=== PATIENT | female | born 1955 | race Caucasian/White ===

== ENCOUNTER 2017-07-11 12:15 | Inpatient (IN) | payer MEDICARE ==
[~2017-07-11] VITALS: Ht 165.1 cm; Wt 53.5 kg
--- NOTE | 2017-07-11 12:30 | NUR ---
GPS/RN RECIEVED PT FROM [facility] ON 5150 FOR DANGER TO OTHERS ALERT NO ACUTE DISTRESS NOTED POOR HISTORIAN, PICTURES TAKEN. ADMITTING ORDERS FROM DR LANDEROS RECEIVED AND CARRIED OUT. ON FACE TO FACE ASSESSMENT NO SI OR HI A THE TIME OF ADMISSION. FAMILY ()NOTIFIED OF ADMISSION.
[2017-07-11 12:41] VITALS: BP 136/85
[2017-07-11] MEDS ORDERED: MAGNESIUM HYDROXIDE 30 ML UDC PO PRN (13:00)
[2017-07-11] MEDS ORDERED: MAG HYDROX/AL HYDROX/SIMETH 30 ML UDC PO PRN ×2 (13:00→15:30)
[2017-07-11] MEDS ORDERED: PANT40TA2 PO (13:04)
[2017-07-11] MEDS ORDERED: METO25TA20 PO (13:04)
[2017-07-11] MEDS ORDERED: ACET325T53 PO (13:04)
[2017-07-11] MEDS ORDERED: BENZ1TAB7 PO (13:04)
[2017-07-11] MEDS ORDERED: MAGN400O4 PO (13:04)
[2017-07-11] MEDS ORDERED: NICO1PAT11 TD (13:04)
[2017-07-11] MEDS ORDERED: BUDE10.22 INH (13:04)
[2017-07-11] MEDS ORDERED: OLAN5TAB6 PO (13:04)
[2017-07-11] MEDS ORDERED: IBUP-1481 PO (13:04)
[2017-07-11] MEDS ORDERED: TRAZ-147 PO (13:04)
[2017-07-11] MEDS ORDERED: SULF1TAB48 PO (13:04)
[2017-07-11] MEDS ORDERED: MAG30ORA PO (13:04)
[2017-07-11] MEDS ORDERED: LORA1TAB82 PO (13:04)
[2017-07-11] MEDS ORDERED: ACET-73 PO (13:04)
[2017-07-11] MEDS ORDERED: ARIP30TA PO (13:04)
--- NOTE | 2017-07-11 15:02 | NUR ---
CALLED DR. CARRERA AND NOTIFIED ABOUT THE ADMISSION AND HE WILL RECONCILE MEDS AND ORDERED U/A AND URINE CULTURE.
[2017-07-11] MEDS ORDERED: MAGNESIUM HYDROXIDE 30 ML UDC PO SCH (15:30)
[2017-07-11] MEDS ORDERED: ACETAMINOPHEN 325 MG TABLET PO PRN (15:30)
[2017-07-11 16:00] VITALS: BP 108/84
[2017-07-11] MEDS: METOPROLOL TARTRATE 25 MG TABLET PO SCH (16:23)
[2017-07-11] MEDS ORDERED: FORMOTEROL FUMARATE INH SCH (17:00)
[2017-07-11] MEDS ORDERED: BUDESONIDE INH SCH (17:00)
[2017-07-11 20:00] VITALS: BP 122/82
[2017-07-11] MEDS: IBUPROFEN 400 MG TABLET PO PRN (20:29)
[2017-07-11] MEDS: clonazePAM 0.5 MG TABLET PO PRN (20:29)
[2017-07-11] MEDS ORDERED: OLANZAPINE 5 MG/TAB.RAPDIS PO SCH (22:00)
[2017-07-11] MEDS ORDERED: OLANZAPINE 10 MG TABLET PO SCH (22:00)
[2017-07-11] MEDS ORDERED: OLANZAPINE 5 MG TABLET ONE (22:00)
[2017-07-11] MEDS ORDERED: TRAZODONE 50 MG TABLET ONE (22:00)
[2017-07-11] MEDS: TRAZODONE 50 MG TABLET PO SCH (22:09)
--- NOTE | 2017-07-12 06:32 | NUR ---
pt refused blood draw. explained the benefits of lab work. pt still refused.
[2017-07-12 08:00] VITALS: BP 125/90
[2017-07-12] MEDS: METOPROLOL TARTRATE 25 MG TABLET PO SCH ×2 (08:59→16:31)
[2017-07-12] MEDS: PANTOPRAZOLE 40 MG TABLET.DR PO SCH (08:59)
[2017-07-12] MEDS: NICOTINE PATCH (21MG) 21 MG PATCH.TD24 TD SCH (08:59)
[2017-07-12 16:12] VITALS: BP 143/80
[2017-07-12] MEDS: OLANZAPINE 5 MG/TAB.RAPDIS PO SCH (16:31)
[2017-07-12 20:11] VITALS: BP 140/77
[2017-07-12] MEDS: TRAZODONE 50 MG TABLET PO SCH (21:37)
--- NOTE | 2017-07-13 00:44 | NUR ---
Pt has been quite fragmented, very disorganized, hyperverbal at times, difficult to redirect, requiring frequent redirections, intrusive, & unpredictable. She has not been med compliant on this shift.
[2017-07-13 08:00] VITALS: BP 137/86
[2017-07-13] MEDS: METOPROLOL TARTRATE 25 MG TABLET PO SCH ×2 (09:36→16:14)
[2017-07-13] MEDS: PANTOPRAZOLE 40 MG TABLET.DR PO SCH (09:36)
[2017-07-13] MEDS: OLANZAPINE 5 MG/TAB.RAPDIS PO SCH ×2 (09:36→16:14)
[2017-07-13] MEDS: NICOTINE PATCH (21MG) 21 MG PATCH.TD24 TD SCH (10:46)
[2017-07-13 16:00] VITALS: BP 136/80
[2017-07-13 21:00] VITALS: BP 128/83
[2017-07-13] MEDS: TRAZODONE 50 MG TABLET PO SCH (21:31)
--- NOTE | 2017-07-13 22:27 | NUR ---
GPS RN NOTES: PATIENT SITTING IN THE DINING ROOM, VERBALLY AGGRESSIVE AT STAFF, PATIENT CONTINUALLY HITTING AT STAFF. OFFERED KLONOPIN 0.5 MG BUT PATIENT JUST THREW IT RIGHT INTO THE NURSE. CALLED DR. LANDEROS FOR AN ORDER OF IM SHOT AT 5470. AWAITING FOR CALL BACK.
--- NOTE | 2017-07-14 02:15 | NUR ---
GPS RN NOTE: PATIENT NOTED FOR SCRATCHING HERSELF. WHILE ASSISTING THE PRIMARY NURSE IN THE TREATMENT AND TAKING PICTURE. PATIENT WAS QUIET AND SUDDENLY KICKED THE NURSE ON HIS FACE. REDIRECT THE PATIENT AND NOTIFIED CHARGE NURSE.
[2017-07-14] MEDS ORDERED: OLANZAPINE 10 MG VIAL IM STA (02:25)
--- NOTE | 2017-07-14 02:25 | NUR ---
GPS RN: IT WAS REPORTED BY THE DIRECTOR SECURITY RISK MANAGEMENT THAT PATIENT HAD A SELF INFLICTED SCRATCH ON BOTH LOWER LEGS. CLEANSED THE SIGHT AND TOOK PICTURES. PATIENT NOTED TO BE TALKING NON SENSICAL STUFF, DELUSIONAL AND WITH FLIGHT OF IDEAS, WITH GESTURES OF TRYING TO GRAB THE STAFF WHENEVER THEY COME NEAR HER. TELEVISION REPORTER, CHECKED THE SITE OF ABRASION. DR. MELCHOR CALLED FOR AN ORDER OF IM SHOT. VITAL SIGNS TAKEN BP 134/97 HEART RATE 104, SHE GAVE ORDERS FOR ZYPREXA 5MG IM ONCE-GIVEN ORDERED. PICTURES ARE THEN PLACED IN THE CHART. WOUND CONSULT TRIGGERED. WILL CONTINUE TO MONITOR PATIENT FOR MOOD, SAFETY AND BEHAVIOR.
[2017-07-14] MEDS ORDERED: OLANZAPINE 10 MG VIAL IM ONE ×2 (02:34→18:00)
--- NOTE | 2017-07-14 07:00 | NUR ---
GPS RN: FIELD REPRESENTATIVE/HEALTH EDUCATION CALLED AND SPOKE WITH PATRICE HARMAN- SPOUSE AND INFORMED REGARDING THE IM SHOT GIVEN TO THE PATIENT. PER PATRICE, THE PATIENT HAS BEEN OFF PSYCH MEDICATION BY THEIR OWN PSYCH DR, AND THAT SHE IS TAKING PAXIL MEDICATION OF UNKNOWN DOSE AND TRAZODONE 300 MG FOR SLEEP. WILL ENDORSE TO DAY SHIFT NURSE, WILL CONTINUE TO MONITOR PATIENT FOR MOOD,SAFETY AND BEHAVIOR.
[2017-07-14] MEDS: OLANZAPINE 5 MG/TAB.RAPDIS PO SCH ×4 (09:00→17:00)
[2017-07-14] MEDS: NICOTINE PATCH (21MG) 21 MG PATCH.TD24 TD SCH ×2 (09:00→09:41)
[2017-07-14] MEDS: METOPROLOL TARTRATE 25 MG TABLET PO SCH ×3 (09:00→17:00)
[2017-07-14] MEDS: PANTOPRAZOLE 40 MG TABLET.DR PO SCH (09:42)
[2017-07-14 12:09] LABS: BASOPHILS % (AUTO) 0.2 % (0.0-2.0); EOSINOPHILS % (AUTO) 0.1 % (0.0-6.0); HEMATOCRIT 43 % (33-45); HEMOGLOBIN 14.7 g/dL (11.5-14.8); LYMPHOCYTES # (AUTO) 1.8 /CMM (0.8-4.8); LYMPHOCYTES % (AUTO) 13.8 % (20.0-44.0); MEAN CORPUSCULAR HEMOGLOBIN 29 PG (26.0-33.0); MEAN CORPUSCULAR HGB CONC 34 g/dl (31.0-36.0); MEAN CORPUSCULAR VOLUME 86 fL (82-100); MONOCYTES % (AUTO) 7.5 % (2.0-12.0); NEUTROPHILS # (AUTO) 10.2 /CMM (1.8-8.9); NEUTROPHILS % (AUTO) 78.4 % (43.0-81.0); PLATELET COUNT (AUTO) 360 /CMM (150-450); RDW COEFFICIENT OF VARIATION 14.2 (11.5-15.0); RED BLOOD CELL COUNT(AUTO) 5.01 MIL/uL (4.0-5.2); WHITE BLOOD COUNT (AUTO) 13.1 K/uL (4.3-11.0)
[2017-07-14 12:20] LABS: CALCIUM, SERUM 9.5 mg/dL (8.5-10.1); POTASSIUM 4.1 mmol/L (3.5-5.1)
--- NOTE | 2017-07-14 14:57 | NUR ---
Initial discharge plan: Pt. resides at home with at [address] [place] [address] [address] [place] [address] . SW will follow up with pt's , Brian Barba [phone] to discuss discharge plan. SW will help form safe and proper discharge.
[2017-07-14 16:00] VITALS: BP 123/93
[2017-07-14] MEDS: FLUTICASONE/VILANTEROL 1 EACH BLST.W.DEV IH SCH (16:42)
[2017-07-14] MEDS: BOOST PLUS FOOD-CHOCLATE 237 ML BOX PO SCH ×2 (16:47→16:48)
--- NOTE | 2017-07-14 17:48 | NUR ---
GPS RN NOTES/ PATIENT VERY ANXIOUS, DELUSIONAL, PARANOID, HALLUCINATING, HIGH POTENTIAL FOR VIOLENCE, THREATENING HARM SELF, STRIKING OUT,REFUSED TAKE MEDICATION. 1:1 SITTER NEXT TO THE PATIENT FOR SAFETY, PATIENT REFUSED V/S TO BE TAKEN, HIGH POTENTIAL FOR VIOLATION. DR TOVAR PRESCRIBED ZYPREXA 5 MG/ML IM . ORDER TAKEN AND CARRIED OUT.
--- NOTE | 2017-07-14 17:52 | NUR ---
GPS RN NOTES/ ADMINISTERED ZYPREXA 5 MG/ML IM RIGHT OUTER GLUTEAL AREA, PRESCRIBED BY MD. 1;1 SITTER NEXT TO THE BED FOR SAFETY. PATIENT REFUSED V/S TO BE TAKEN. CONTINUED MONITORING.
[2017-07-14 20:23] VITALS: BP 127/81
[2017-07-14] MEDS: TRAZODONE 50 MG TABLET PO SCH (21:25)
[2017-07-15 08:00] VITALS: BP 116/75
[2017-07-15] MEDS: METOPROLOL TARTRATE 25 MG TABLET PO SCH ×3 (09:00→16:54)
[2017-07-15] MEDS: NICOTINE PATCH (21MG) 21 MG PATCH.TD24 TD SCH (09:00)
[2017-07-15] MEDS: PANTOPRAZOLE 40 MG TABLET.DR PO SCH ×2 (09:00→10:11)
[2017-07-15] MEDS: OLANZAPINE 5 MG/TAB.RAPDIS PO SCH ×3 (09:00→16:55)
[2017-07-15] MEDS: FLUTICASONE/VILANTEROL 1 EACH BLST.W.DEV IH SCH (09:13)
[2017-07-15] MEDS: BOOST PLUS FOOD-CHOCLATE 237 ML BOX PO SCH ×2 (09:14→16:56)
--- NOTE | 2017-07-15 16:10 | NUR ---
SW spoke with pt's (who she is from) and he states that pt. lives alone in an apartment, and the number of the apartment is [address] and not [address]. BA was asked to call the apartment building and to notify them that the patient is in the hospital so they don't evict her. BA called the building [phone] and spoke with a personnel technician and provided her all the information.
[2017-07-15 16:19] VITALS: BP 119/78
--- NOTE | 2017-07-15 18:00 | NUR ---
GPS RN NOTES/ PATIENT A/O X1/2, DELUSIONAL, DISORGANIZED THOUGHTS, UNPREDICTABLE, REFUSED TAKE MEDICATION, AND POOR EATER. DR LANDEROS, AND MK RAMIRES AWARE OF. 1:1 SITTER NEXT TO THE BED FOR SAFETY. ENDORSED ONCOMING NURSE FOR CONTINUATION OF CARE.
[2017-07-15 20:00] VITALS: BP 137/71
[2017-07-15 20:40] VITALS: BP 137/71
[2017-07-15] MEDS: TRAZODONE 50 MG TABLET PO SCH (21:23)
[2017-07-16 08:00] VITALS: BP 146/87
[2017-07-16] MEDS: BOOST PLUS FOOD-CHOCLATE 237 ML BOX PO SCH ×2 (09:02→16:59)
[2017-07-16] MEDS: NICOTINE PATCH (21MG) 21 MG PATCH.TD24 TD SCH (09:03)
[2017-07-16] MEDS: PANTOPRAZOLE 40 MG TABLET.DR PO SCH (09:03)
[2017-07-16] MEDS: OLANZAPINE 5 MG/TAB.RAPDIS PO SCH ×2 (09:03→16:59)
[2017-07-16] MEDS: FLUTICASONE/VILANTEROL 1 EACH BLST.W.DEV IH SCH (09:03)
[2017-07-16] MEDS: METOPROLOL TARTRATE 25 MG TABLET PO SCH ×2 (09:03→16:59)
--- NOTE | 2017-07-16 10:19 | NUR ---
WOUND CARE CONSULT: PT PRESENTS WITH MULTIPLE BRUISES AND DRY SCRATCHES, PRESENT ON ADMISSION. PT IS CONTINENT. ALL SKIN PROTECTION MEASURES IN PLACE AND DISCUSSED WITH NURSING STAFF. WILL SEE PRN. Addendum: 07/16/17 at 1020 by STACEY SCHWARTZ WNDNU Amended: Links added.
--- NOTE | 2017-07-16 10:30 | NUR ---
Pt. able to reposition by herself.
--- NOTE | 2017-07-16 12:58 | NUR ---
Pt. able to reposition by herself
--- NOTE | 2017-07-16 15:31 | NUR ---
Pt. able to reposition by herself
[2017-07-16 16:00] VITALS: BP 133/74
[2017-07-16 20:00] VITALS: BP 124/81
[2017-07-16] MEDS: TRAZODONE 50 MG TABLET PO SCH (21:21)
[2017-07-17] MEDS: clonazePAM 0.5 MG TABLET PO PRN (03:38)
[2017-07-17 08:00] VITALS: BP 106/64
[2017-07-17] MEDS: METOPROLOL TARTRATE 25 MG TABLET PO SCH ×2 (09:00→16:59)
[2017-07-17] MEDS: OLANZAPINE 5 MG/TAB.RAPDIS PO SCH ×2 (09:05→21:38)
[2017-07-17] MEDS: PANTOPRAZOLE 40 MG TABLET.DR PO SCH (09:05)
[2017-07-17] MEDS: NICOTINE PATCH (21MG) 21 MG PATCH.TD24 TD SCH (09:05)
[2017-07-17] MEDS: BOOST PLUS FOOD-CHOCLATE 237 ML BOX PO SCH ×2 (09:07→17:00)
[2017-07-17] MEDS: FLUTICASONE/VILANTEROL 1 EACH BLST.W.DEV IH SCH (09:10)
[2017-07-17 16:01] VITALS: BP 123/93
--- NOTE | 2017-07-17 19:31 | NUR ---
FOUNTAIN SERVER-NOTES NO URINE COLLECTED THIS SHIFT. ENDORSE TO INCOMING NURSE FOR CONTINUITY OF CARE.
[2017-07-17 20:00] VITALS: BP 126/96
[2017-07-17] MEDS: TRAZODONE 50 MG TABLET PO SCH (21:38)
[2017-07-17] MEDS: TEMAZEPAM 7.5 MG CAPSULE PO PRN (23:16)
[2017-07-18] MEDS: clonazePAM 0.5 MG TABLET PO PRN (03:05)
--- NOTE | 2017-07-18 03:12 | NUR ---
RN GPS NOTES PT. C/O ANXIETY ,KLONOPIN 0.5 MG PO PRN GIVEN , WILL CONTINUE TO MONITOR .
--- NOTE | 2017-07-18 07:08 | NUR ---
RN GPS NOTES PATIENT RESTING HER BED, NO ACUTE DISTRESS NOTED ,NO CHANGES IN STATUS. ALL NEEDS ATTENDED ANTICIPATED . DENIES SI/HI AT THIS TIME, PT. COMPLY WITH DUE MEDS ,WILL ENDORSE TO NEXT SHIFT FOR CONTINUITY CARE
[2017-07-18 08:00] VITALS: BP 95/65
[2017-07-18] MEDS: METOPROLOL TARTRATE 25 MG TABLET PO SCH ×2 (08:43→17:00)
[2017-07-18] MEDS: PANTOPRAZOLE 40 MG TABLET.DR PO SCH (08:43)
[2017-07-18] MEDS: FLUTICASONE/VILANTEROL 1 EACH BLST.W.DEV IH SCH (08:44)
[2017-07-18] MEDS: NICOTINE PATCH (21MG) 21 MG PATCH.TD24 TD SCH (08:44)
[2017-07-18] MEDS: OLANZAPINE 5 MG/TAB.RAPDIS PO SCH ×2 (08:44→21:47)
[2017-07-18] MEDS: BOOST PLUS FOOD-CHOCLATE 237 ML BOX PO SCH ×2 (08:46→18:59)
[2017-07-18 16:00] VITALS: BP 127/84
[2017-07-18 20:00] VITALS: BP 106/70
[2017-07-18] MEDS: TRAZODONE 50 MG TABLET PO SCH (21:46)
[2017-07-18] MEDS: TEMAZEPAM 7.5 MG CAPSULE PO PRN (22:35)
[2017-07-19] MEDS: clonazePAM 0.5 MG TABLET PO PRN (04:37)
--- NOTE | 2017-07-19 04:40 | NUR ---
RN GPS NOTES PT. C/O ANXIETY ,KLONOPIN 0.5 MG PO PRN GIVEN , WILL CONTINUE TO MONITOR .
[2017-07-19 08:00] VITALS: BP 121/78
[2017-07-19] MEDS: NICOTINE PATCH (21MG) 21 MG PATCH.TD24 TD SCH (09:26)
[2017-07-19] MEDS: OLANZAPINE 5 MG/TAB.RAPDIS PO SCH ×2 (09:27→21:40)
[2017-07-19] MEDS: PANTOPRAZOLE 40 MG TABLET.DR PO SCH (09:27)
[2017-07-19] MEDS: METOPROLOL TARTRATE 25 MG TABLET PO SCH ×2 (09:27→16:49)
[2017-07-19] MEDS: BOOST PLUS FOOD-CHOCLATE 237 ML BOX PO SCH ×2 (09:28→16:22)
[2017-07-19] MEDS: FLUTICASONE/VILANTEROL 1 EACH BLST.W.DEV IH SCH (09:28)
[2017-07-19 16:06] VITALS: BP 126/80
[2017-07-19 19:59] VITALS: BP 122/75
[2017-07-19] MEDS: TRAZODONE 50 MG TABLET PO SCH (21:39)
[2017-07-19] MEDS: TEMAZEPAM 7.5 MG CAPSULE PO PRN (22:17)
[2017-07-20] MEDS: PANTOPRAZOLE 40 MG TABLET.DR PO SCH (07:59)
[2017-07-20] MEDS: METOPROLOL TARTRATE 25 MG TABLET PO SCH ×2 (07:59→17:25)
[2017-07-20] MEDS: OLANZAPINE 5 MG/TAB.RAPDIS PO SCH (07:59)
[2017-07-20 08:00] VITALS: BP 121/80
[2017-07-20] MEDS: BOOST PLUS FOOD-CHOCLATE 237 ML BOX PO SCH ×2 (08:00→17:32)
[2017-07-20] MEDS: FLUTICASONE/VILANTEROL 1 EACH BLST.W.DEV IH SCH (08:02)
[2017-07-20 08:28] VITALS: BP 121/80
[2017-07-20] MEDS: ACETAMINOPHEN 325 MG TABLET PO PRN ×2 (08:43→17:58)
[2017-07-20] MEDS: NICOTINE PATCH (21MG) 21 MG PATCH.TD24 TD SCH (08:47)
--- NOTE | 2017-07-20 08:50 | NUR ---
GPS/RN PATIENT REPORTS 8/10 GENERALIZED PAIN REQUESTED TYLENOL, ADMINISTERED TYLENOL PO ORDERED, WILL CONTINUE TO MONITOR.
[2017-07-20] MEDS: clonazePAM 0.5 MG TABLET PO PRN ×2 (10:13→21:14)
--- NOTE | 2017-07-20 10:13 | NUR ---
RN GPS NOTES PATIENT ANXIOUS, RESTLESS, REQUESTED KLONOPIN PO, ADMINISTERED KLONOPIN PO 0.5 MG ORDERED, WILL CONTINUE TO MONITOR. WILL CONTINUE TO MONITOR . Addendum: 07/20/17 at 1021 by THOMAS PAPPAS RN PATIENT CHANGED HER MIND ABOUT TAKING THE MEDICATION, WILL CONTINUE TO MONITOR.
[2017-07-20] MEDS: IBUPROFEN 400 MG TABLET PO PRN (13:53)
--- NOTE | 2017-07-20 13:55 | NUR ---
GPS/RN PATIENT REPORTS 710 GENERALIZED PAIN REQUESTED MOTRIN, ADMINISTERED MOTRIN PO ORDERED, WILL CONTINUE TO MONITOR.
[2017-07-20 16:00] VITALS: BP 130/88
--- NOTE | 2017-07-20 17:59 | NUR ---
GPS/RN PATIENT REPORTS 7/10 GENERALIZED PAIN REQUESTED TYLENOL, ADMINISTERED TYLENOL PO ORDERED, WILL CONTINUE TO MONITOR.
--- NOTE | 2017-07-20 19:30 | NUR ---
GPSRN PATIENT SLEEPING AT THIS TIME. TO CONTINUE.
[2017-07-20 20:14] VITALS: BP 106/61
[2017-07-20] MEDS: TRAZODONE 50 MG TABLET PO SCH (20:35)
--- NOTE | 2017-07-20 20:35 | NUR ---
GPSRN AWAKENED, INSISTED TO HAVE HER TRAZADONE TO BE GIVEN EARLY. STATED SHE DOES NOT WANT TO BE DISTURB AFTER TAKING HER MEDICATION. ADMISTERED EARLY PER REQUEST. TO CONTINUE.
--- NOTE | 2017-07-20 21:00 | NUR ---
GPSRN GETTING AGITATED, WENT OUT OF HER ROOM AND PREFERRED TO SEAT OUTSIDE ROOM. APPEARS UPSET WITH ROOM MATES' BEHAVIOR, STATED "TOO MUCH " FOR HER. WANTED TO HAVE HER KLONOPIN AND WILL CALL LATER. WANTED TO BE LEFT ALONE. CLOSELY WATCHED.
[2017-07-20] MEDS ORDERED: OLANZAPINE 5 MG/TAB.RAPDIS PO SCH (22:00)
--- NOTE | 2017-07-20 22:06 | NUR ---
GPSRN SLEEPING AT THIS TIME FEW MINUTES AFTER KLONOPIN ADMINISTRATION. SITTER AT BEDSIDE.
[2017-07-21] MEDS: IBUPROFEN 400 MG TABLET PO PRN ×2 (03:34→14:56)
--- NOTE | 2017-07-21 03:40 | NUR ---
GPSRN VERBALIZES TOOTH ACHE, MOTRIN 400 MG PO ADMINISTERED REQUESTED. WILL ADDRESS TO MORNING SHIFT NEED FOR DENTIST IF POSSIBLE. MILK AND CRACKERS PROVIDED. REMAINS COOPERATIVE . SLEPT GOOD.
--- NOTE | 2017-07-21 06:54 | NUR ---
GPSRN TOTAL HOURS OF SLEEP, 7HRS.
[2017-07-21 08:00] VITALS: BP 91/67
[2017-07-21] MEDS: PANTOPRAZOLE 40 MG TABLET.DR PO SCH (08:08)
[2017-07-21] MEDS: clonazePAM 0.5 MG TABLET PO PRN (08:08)
--- NOTE | 2017-07-21 08:08 | NUR ---
RN GPS NOTES PATIENT ANXIOUS, RESTLESS, REQUESTED KLONOPIN PO, ADMINISTERED KLONOPIN PO 0.5 MG ORDERED, WILL CONTINUE TO MONITOR. WILL CONTINUE TO MONITOR .
[2017-07-21] MEDS: OLANZAPINE 5 MG/TAB.RAPDIS PO SCH (08:09)
[2017-07-21] MEDS: NICOTINE PATCH (21MG) 21 MG PATCH.TD24 TD SCH (08:09)
[2017-07-21] MEDS: BOOST PLUS FOOD-CHOCLATE 237 ML BOX PO SCH (08:50)
[2017-07-21] MEDS: METOPROLOL TARTRATE 25 MG TABLET PO SCH (09:00)
[2017-07-21] MEDS: FLUTICASONE/VILANTEROL 1 EACH BLST.W.DEV IH SCH (09:04)
--- NOTE | 2017-07-21 13:14 | NUR ---
Pt. expressed not wanting to go home and wanted to be placed in a facility. Pt. was referred and accepted to [facility] [phone] ([phone]) via Ángel and SYLVIA at the facility.
--- NOTE | 2017-07-21 15:10 | NUR ---
Discharge note: discharge to [facility] ([phone]) [address] [place] [address] , Brian Barba [phone] was notified and agreed. Pt. is a smoker and was referred to [facility] [facility] on at 1:00 PM [phone] PIN: [phone] . Pt. agreed with being placed in a facility and was very happy about not returning back home. Discharge paperwork has been signed, discharge instructions have been provided to the accepting facility. Pt. was calm, cooperative, and agreed with the discharge plan. Pt. denied suicidal/homicidal ideations.
[2017-07-21 16:00] VITALS: BP 114/61
--- NOTE | 2017-07-21 16:30 | NUR ---
GPS/RN PATIENT IS A 62 Y/O FEMALE CLEARED FOR DISCHARGE TO [facility] BY DR LANDEROS AND DR CARRERA. ALL D/C PAPER WORK COMPLETED, MEDICATIONS RECONCILED BY BOTH DR'S, D/C PACKET, AFTERCARE AND MEDICATIONS REVIEWED WITH PATIENT, VERBALIZED UNDERSTANDING, BELONGINGS RETURNED AND SIGNED FOR BY PATIENT, PATIENT DENIES SI/HI/AH UPON DISCHARGE, PSYCHIATRIC TREATMENT PLANS MET, REPORT CALLED TO FACILITY, SPOKE WITH RENE, MEDICATIONS FAXED TO FACILITY REQUESTED, PATIENT LEFT UNIT CALM, COOPERATIVE, NO DISTRESS NOTED WITH EMT AT SIDE.
== END 2017-07-21 16:30 | DRG 885 ==
LOC: GPS 12:15
PROVIDERS: ADMIT Psychiatry & Neurology Psychiatry; ATTEND Family Medicine
DX: F20.0 Paranoid schizophrenia (principal); R45.851 Suicidal ideations; F29 Unspecified psychosis not due to a substance or known physiological condition; Z73.6 Limitation of activities due to disability; I10 Essential (primary) hypertension; D72.829 Elevated white blood cell count, unspecified; I25.10 Atherosclerotic heart disease of native coronary artery without angina pectoris; J44.9 Chronic obstructive pulmonary disease, unspecified; Z88.0 Allergy status to penicillin; Z88.1 Allergy status to other antibiotic agents
CPT/HCPCS: 36415; 80048-TC; 85025-TC; 87081-TC; A6402; J3490; Z7610